=== PATIENT | female | born 1970 | race African-American/Black ===

== ENCOUNTER 2016-09-02 08:31 | Emergency (ER) | payer OTHER ==
--- NOTE | 2016-09-02 09:24 | UC ---
Abdominal Pain Female HPI - HPI Summary HPI Summary: SUDDEN ONSET OF RLQ PAIN 5:30AM THIS MORNING. WAXES AND WANES. HAD A BM AND PAIN GOT WORSE. APPETITE IS DOWN BUT NO N/V. UNABLE TO GET COMFORTABLE. NO FEVER. DENIES URINARY SX. REPORTS H/O PARTIAL HYSTERECTOMY. - History of Current Complaint Chief Complaint: UCAbdominalPain Stated Complaint: LOWER ABD PAIN Time Seen by Provider: 09/02/16 09:17 Hx Obtained From: Patient Onset/Duration: Sudden Onset, Lasting Hours, Still Present Timing: Constant Severity Initially: Moderate Severity Currently: Severe Pain Intensity: 9 Pain Scale Used: 0-10 Numeric Location: Discrete At: RLQ Radiates: No Character: Cramping, Sharp Aggravating Factor(s): Movement Alleviating Factor(s): Nothing Associated Signs and Symptoms: Positive: Decreased Appetite. Negative: Fever, Back Pain, Constipation, Urinary Symptoms, Vaginal Bleeding, Vaginal Discharge, Nausea, Vomiting Allergies/Adverse Reactions: Allergies Allergy/AdvReac Type Severity Reaction Status Date / Time Aspirin Allergy Hives Verified 09/02/16 08:49 Clindamycin Allergy Hives Verified 09/02/16 08:49 Metronidazole [From Flagyl] Allergy Hives Verified 09/02/16 08:49 Nitrofurantoin Allergy Hives Verified 09/02/16 08:51 [From Macrobid] Oxcarbazepine Allergy Hives Verified 09/02/16 08:50 [From Trileptal] Penicillins Allergy Hives Verified 09/02/16 08:48 Trazodone Allergy Hives Verified 09/02/16 08:50 Erythromycin Allergy Hives Uncoded 09/02/16 08:51 Nitro paste Allergy Hives Uncoded 09/02/16 08:50 serazone Allergy Hives Uncoded 09/02/16 08:52 Sulfa drugs Allergy Hives Uncoded 09/02/16 08:50 Home Medications: Home Medications Albuterol 2.5MG/3ML (0.083%)* [Ventolin 2.5 MG/3 ML NEB.JAZMIN*] PRN 09/02/16 [ History] Albuterol HFA INHALER* [Ventolin HFA Inhaler*] 2 puff INH PRN 09/02/16 [History] Atorvastatin* [Lipitor 10 MG*] 1 tab PO WEEKLY 09/02/16 [History Confirmed 09/02] Budesonide/Formote 160/4.5(NF) [Symbicort 160/4.5 (NF)] 09/02/16 [History] Cyclobenzaprine TAB* [Flexeril TAB*] 1 tab PO BEDTIME 09/02/16 [History Confirmed 09/02/16] Gabapentin CAP(*) [Neurontin 300 CAP(*)] 600 mg PO TID 09/02/16 [History Confirmed 09/02/16] Omeprazole 2 cap PO EVERY OTHER DAY 09/02/16 [History Confirmed 09/02/16] Tiotropium [place] Monohydrate [Spiriva Respimat] 1.25 mcg IN 09/02/16 [History] PMH/Surg Hx/FS Hx/Imm Hx - Additional Past Medical History Additional PMH: SARCOIDOSIS Endocrine History Of: Denies: Diabetes, Thyroid Disease Cardiovascular History Of: Denies: Cardiac Disorders, Hypertension Respiratory History Of: Reports: Asthma Denies: COPD GI/ History Of: Reports: Gastroesophageal Reflux Denies: Ulcer Psychological History Of: Reports: Anxiety, Bipolar Disorder - BORDERLINE PERSONALITY - Surgical History Surgical History: Yes Surgery Procedure, Year, and Place: Partial hysterectomy, tubal ligation, colonoscopy - Family History Known Family History: Positive: Hypertension - Social History Alcohol Use: None Substance Use Type: None Smoking Status (MU): Light Every Day Tobacco Smoker Type: Cigarettes Amount Used/How Often: 3-5 per day Have You Smoked in the Last Year: Yes Household Exposure Type: Cigarettes - Immunization History Most Recent Influenza Vaccination: 2015/2016 Most Recent Pneumonia Vaccination: 2016 Review of Systems Constitutional: Negative Respiratory: Negative Cardiovascular: Negative Gastrointestinal: Abdominal Pain, Other - NAUSEA All Other Systems Reviewed And Are Negative: Yes Physical Exam Triage Information Reviewed: Yes Appearance: Well-Nourished, Pain Distress - MODERATE Vital Signs: Initial Vital Signs Temp 97.6 F 09/02/16 08:40 Pulse 97 09/02/16 08:40 Resp 20 09/02/16 08:40 BP 106/68 09/02/16 08:40 Pulse Ox 98 09/02/16 08:40 Vital Signs Reviewed: Yes Eyes: Positive: Conjunctiva Clear ENT: Positive: Hearing grossly normal Neck: Positive: Supple Respiratory Exam: Normal Cardiovascular: Positive: Tachycardia Abdomen Description: Positive: Soft, Other: - TTP RLQ. NO REBOUND, RIGIDITY OR GUARDING. EQUIVOCAL OBTURATOR SIGN. NEG PSOAS SIGN. Negative: CVA Tenderness (R ), CVA Tenderness (L), Distended, Guarding Bowel Sounds: Positive: Present Musculoskeletal: Positive: No Edema Neurological: Positive: Alert Psychological: Positive: Age Appropriate Behavior Skin: Negative: rashes Abd Pain Female Course/Dx - Course Course Of Treatment: PT UNABLE TO PROVIDE A URINE SAMPLE. GIVEN LEVEL OF DISCOMFORT WILL SEND TO ER FOR FURTHER EVALUATION. - Differential Dx/Diagnosis Differential Diagnosis: Appendicitis, Bowel Obstruction, Ectopic , Irritable Bowel Syndrome, Urinary Tract Infection Provider Diagnoses: RLQ PAIN - Physician Notification/Consults Discussed Patient Care With: KATELYN SANDOVAL Time Discussed With Above Provider: 09:30 Instructed by Provider To: Transfer - [place] [facility] [place] [facility] [place] - Discharge Plan Condition: Good Disposition: TRANS HIGHER LVL OF CARE FAC Referrals: No Primary Care Phys,NOPCP [Primary Care Provider] -
[2016-09-02 09:55] VITALS: BP 122/75
== END 2016-09-02 09:50 | disposition short-term general hospital (02) ==
LOC: UCEAST 08:31
DX: R10.31 Right lower quadrant pain (principal); R11.0 Nausea; Z90.711 Acquired absence of uterus with remaining cervical stump; Z88.1 Allergy status to other antibiotic agents; Z88.6 Allergy status to analgesic agent; Z88.0 Allergy status to penicillin; Z88.2 Allergy status to sulfonamides; F17.210 Nicotine dependence, cigarettes, uncomplicated
CPT/HCPCS: 99203; G0463

== ENCOUNTER 2016-09-02 10:12 | Emergency (ER) | payer OTHER, MEDICAID ==
[2016-09-02] MEDS ORDERED: NS 0.9% 1000 ML* 1,000 ML IV ONE (11:28)
[2016-09-02 11:46] LABS: Hematocrit 40 % (35-47); Mean Corpuscular HGB Conc 33 g/dl (31-36); Mean Corpuscular Hemoglobin 29 pg (27-31); Mean Corpuscular Volume 89 fL (80-97); Mean Platelet Volume 10 um3 (7.4-10.4); Red Blood Count 4.48 10^6/ul (4.0-5.4); Red Cell Distribution Width 14 % (10.5-15); White Blood Count 7.3 10^3/ul (3.5-10.8)
[2016-09-02 11:56] LABS: Albumin 3.9 g/dL (3.2-5.2); BUN/Creatinine Ratio 18.6 (8-20); C Reactive Protein 12.56 mg/L (< 5.00); Calcium 9.7 mg/dL (8.6-10.3); EGFR African American 114.9 (>60); EGFR Non-African American 89.3 (>60); Globulin 3.9 g/dL (2-4); Potassium 3.8 mmol/L (3.5-5.0); Total Bilirubin 0.6 mg/dL (0.2-1.0); Total Protein 7.8 g/dL (6.4-8.9)
[2016-09-02 12:45] LABS: Urine Bilirubin Negative (Negative); Urine Glucose Negative (Negative); Urine Nitrite Negative (Negative)
[2016-09-02] MEDS ORDERED: Ondansetron INJ* 2 MG/ML VIAL IV ONE ×2 (12:56→14:22)
--- NOTE | 2016-09-02 13:13 | RAD ---
HISTORY: Right upper quadrant pain COMPARISONS: None TECHNIQUE: Multiple transverse and longitudinal ultrasound images were obtained of the right upper quadrant of the abdomen using grayscale and color Doppler imaging. FINDINGS: LIVER: The liver is normal in shape, size, contour, and echogenicity. There are no focal parenchymal masses. There is normal hepatopedal flow of the portal vein on Doppler imaging. BILIARY TREE: There is no intrahepatic or extrahepatic biliary dilatation. The common duct measures 0.3 cm. GALLBLADDER: The gallbladder is well-visualized. There is no cholelithiasis, gallbladder wall thickening, pericholecystic fluid, or sonographic Mon[place] sign. PANCREAS: The head of the pancreas is unremarkable. The tail of the pancreas is not well visualized secondary to overlying bowel gas. RIGHT KIDNEY: The right kidney is normal in shape, size, contour, and echogenicity. There is no hydronephrosis or nephrolithiasis. The right kidney measures 11.4 x 3.8 x 5.2 cm. AORTA AND IVC: The aorta and IVC are unremarkable. FLUID: There are no pleural effusions. There is no free fluid within the hepatorenal recess. OTHER FINDINGS: None. IMPRESSION: NO ACUTE SONOGRAPHIC PATHOLOGY OF THE VISUALIZED PORTION OF THE ABDOMEN
[2016-09-02] MEDS ORDERED: HYDROmorphone INJ* 1 MG/ML CARPUJECT SYRINGE IV ONE ×2 (14:22→18:30)
[2016-09-02] MEDS ORDERED: Iohexol 300* (CONTRAST) 10 ML SDV IV ONE (15:56)
--- NOTE | 2016-09-02 17:13 | RAD ---
INDICATION: Right lower quadrant pain COMPARISON: Gallbladder sonogram September 02, 2016 TECHNIQUE: Axial source images were obtained from the hemidiaphragms to the symphysis pubis following administration of oral and intravenous contrast. 129 mL Omnipaque 300 was utilized. Coronal and sagittal reconstructed images were acquired. Lung bases: The lung bases are clear. Liver: The liver is normal in size. There are no masses. There is no ductal dilatation. Gallbladder: There are no calcified gallstones. There is no evidence of wall thickening or pericholecystic fluid. Spleen: The spleen is mildly enlarged and diffusely heterogeneous on the immediate and on the delayed images. Although this could be related to the injection timing, a follow-up ultrasound of the spleen is recommended when the patient is clinically well to assess both for splenic size and for the presence of an underlying splenic abnormality. Pancreas: There is no focal pancreatic mass or ductal dilatation. Adrenal glands: There is no evidence of adrenal mass. Kidneys: The kidneys are normal in size and position. There are prompt nephrograms and there is prompt excretion bilaterally. There are no renal parenchymal masses. There is no evidence of nephrolithiasis. Adenopathy: There is no evidence of adenopathy by size criteria. Fluid collections: There are no free or localized fluid collections. Vessels:There are no significant atherosclerotic changes involving the aorta. There is no focal aneurysm. The iliac vessels are normal in caliber. The IVC appears normal. GI tract: There is long segment narrowing and apparent mild mucosal thickening of the terminal ileum raising the possibility of an inflammatory process of the terminal ileum to include Crohn's disease. The remainder the small bowel is unremarkable. The stomach appears normal. The lower GI tract is unremarkable. The appendix is not visualized. Pelvic organs: Hysterectomy. No adnexal mass. Bladder: There are no bladder masses. Abdominal and pelvic soft tissues: The extraperitoneal abdominal and pelvic soft tissues appear normal.. Osseous structures: There are no acute osseous findings. Other: None IMPRESSION: 1. Mildly enlarged spleen with heterogeneous. Suggest follow-up splenic sonography. 2. Lung segment narrowing of the terminal ileum raises the possibility of inflammatory bowel disease. 3. Nonvisualization of the appendix. 4. Hysterectomy.
[2016-09-02] MEDS ORDERED: Ciprofloxacin TAB* 500 MG PO ONE (18:31)
[2016-09-02 18:39] VITALS: BP 125/86
--- NOTE | 2016-09-02 18:50 | ED ---
Hector Bocanegra Anna, scribed for Shiv Henry MD on 09/02/16 at 1619 . Progress - Progress Note Progress Note: DISCUSSED RESULTS WITH PATIENT AND GI, DR PRATT. DISCHARGE HOME STABLE WITH CIPRO AND PERCOCET RX. PATIENT WILL F/U WITH HER GI DOCTOR; RETURN IF WORSE. Re-Evaluation - Re-Evaluation First Eval Re-Evaluation Time: 18:04 Change: Unchanged Comment: Discussed results with patient and family. Will care GI doctor to discuss plan of care. Second Eval Re-Evaluation Time: 18:30 Change: Unchanged Comment: Discussed plan of care with patient. Patient agrees with plan of care. Course/Dx - Course Course Of Treatment: DISCHARGE HOME STABLE. - Diagnoses Provider Diagnoses: Abdominal pain, Ileitis, terminal - Provider Notifications Discussed Care Of Patient With: Dr. Pratt (GI) at 1819. Patient should be started on Abx and can receive pain medication. It is most likely viral. She should follow up with GI. Diagnostics - Vital Signs Vital Signs Temp Pulse Resp BP Pulse Ox 09/02/16 17:00 80 95 09/02/16 16:53 84 146/108 97 09/02/16 16:00 82 128/75 97 09/02/16 15:52 87 135/88 97 09/02/16 15:05 20 09/02/16 15:00 77 115/72 98 09/02/16 14:30 76 112/76 98 09/02/16 14:00 78 116/80 97 09/02/16 13:35 75 97 09/02/16 10:14 98.4 F 93 20 115/76 98 - Laboratory Lab Results: Lab Results 09/02/16 09/02/16 09/02/16 Range/Units 11:00 11:00 11:00 WBC 7.3 (3.5-10.8) 10^3/ul RBC 4.48 (4.0-5.4) 10^6/ul Hgb 13.0 (12.0-16.0) g/dl Hct 40 (35-47) % MCV 89 (80-97) fL MCH 29 (27-31) pg MCHC 33 (31-36) g/dl RDW 14 (10.5-15) % Plt Count 248 (150-450) 10^3/ul MPV 10 (7.4-10.4) um3 Neut % (Auto) 62.4 (38-83) % Lymph % (Auto) 27.4 (25-47) % [place] % (Auto) 6.6 (1-9) % Eos % (Auto) 2.8 (0-6) % Baso % (Auto) 0.8 (0-2) % Absolute Neuts (auto) 4.6 (1.5-7.7) 10^3/ul Absolute Lymphs (auto) 2.0 (1.0-4.8) 10^3/ul Absolute Monos (auto) 0.5 (0-0.8) 10^3/ul Absolute Eos (auto) 0.2 (0-0.6) 10^3/ul Absolute Basos (auto) 0.1 (0-0.2) 10^3/ul Absolute Nucleated RBC 0.01 10^3/ul Nucleated RBC % 0.1 Sodium 136 (133-145) mmol/L Potassium 3.8 (3.5-5.0) mmol/L Chloride 104 (101-111) mmol/L Carbon Dioxide 27 (22-32) mmol/L Anion Gap 5 (2-11) mmol/L BUN 13 (6-24) mg/dL Creatinine 0.70 (0.51-0.95) mg/dL Est GFR ( Amer) 114.9 (>60) Est GFR (Non-Af Amer) 89.3 (>60) BUN/Creatinine Ratio 18.6 (8-20) Glucose 97 (70-100) mg/dL Lactic Acid 1.1 (0.5-2.0) mmol/L Calcium 9.7 (8.6-10.3) mg/dL Total Bilirubin 0.60 (0.2-1.0) mg/dL AST 28 (13-39) U/L ALT 42 (7-52) U/L Alkaline Phosphatase 145 H (34-104) U/L C-Reactive Protein 12.56 H (< 5.00) mg/L Total Protein 7.8 (6.4-8.9) g/dL Albumin 3.9 (3.2-5.2) g/dL Globulin 3.9 (2-4) g/dL Albumin/Globulin Ratio 1.0 (1-3) Lipase 17 (11.0-82.0) U/L Urine Color Urine Appearance Urine pH (5-9) Ur Specific [place] (1.010-1.030) Urine Protein (Negative) Urine Ketones (Negative) Urine Blood (Negative) Urine Nitrate (Negative) Urine Bilirubin (Negative) Urine Urobilinogen (Negative) Ur Leukocyte Esterase (Negative) Urine Glucose (Negative) 09/02/16 Range/Units 12:20 WBC (3.5-10.8) 10^3/ul RBC (4.0-5.4) 10^6/ul Hgb (12.0-16.0) g/dl Hct (35-47) % MCV (80-97) fL MCH (27-31) pg MCHC (31-36) g/dl RDW (10.5-15) % Plt Count (150-450) 10^3/ul MPV (7.4-10.4) um3 Neut % (Auto) (38-83) % Lymph % (Auto) (25-47) % [place] % (Auto) (1-9) % Eos % (Auto) (0-6) % Baso % (Auto) (0-2) % Absolute Neuts (auto) (1.5-7.7) 10^3/ul Absolute Lymphs (auto) (1.0-4.8) 10^3/ul Absolute Monos (auto) (0-0.8) 10^3/ul Absolute Eos (auto) (0-0.6) 10^3/ul Absolute Basos (auto) (0-0.2) 10^3/ul Absolute Nucleated RBC 10^3/ul Nucleated RBC % Sodium (133-145) mmol/L Potassium (3.5-5.0) mmol/L Chloride (101-111) mmol/L Carbon Dioxide (22-32) mmol/L Anion Gap (2-11) mmol/L BUN (6-24) mg/dL Creatinine (0.51-0.95) mg/dL Est GFR ( Amer) (>60) Est GFR (Non-Af Amer) (>60) BUN/Creatinine Ratio (8-20) Glucose (70-100) mg/dL Lactic Acid (0.5-2.0) mmol/L Calcium (8.6-10.3) mg/dL Total Bilirubin (0.2-1.0) mg/dL AST (13-39) U/L ALT (7-52) U/L Alkaline Phosphatase (34-104) U/L C-Reactive Protein (< 5.00) mg/L Total Protein (6.4-8.9) g/dL Albumin (3.2-5.2) g/dL Globulin (2-4) g/dL Albumin/Globulin Ratio (1-3) Lipase (11.0-82.0) U/L Urine Color Yellow Urine Appearance Cloudy Urine pH 5.0 (5-9) Ur Specific [place] 1.018 (1.010-1.030) Urine Protein Negative (Negative) Urine Ketones Negative (Negative) Urine Blood Negative (Negative) Urine Nitrate Negative (Negative) Urine Bilirubin Negative (Negative) Urine Urobilinogen Negative (Negative) Ur Leukocyte Esterase Negative (Negative) Urine Glucose Negative (Negative) Result Diagrams: 09/02/16 11:00 09/02/16 11:00 Lab Statement: Any lab studies that have been ordered have been reviewed, and results considered in the medical decision making process. - CT CT abd/pel CT Interpretation: Positive (See Comments) CT Interpretation Completed By: Radiologist - IMPRESSION: 1. Mildly enlarged spleen with heterogeneous. Suggest follow-up splenic sonography. 2. Lung segment narrowing of the terminal ileum raises the possibility of inflammatory bowel disease. 3. Nonvisualization of the appendix. 4. Hysterectomy. - Additional Comments Diagnostic Additional Comments: GallBladder US -- NO ACUTE SONOGRAPHIC PATHOLOGY OF THE VISUALIZED PORTION OF THE ABDOMEN The documentation as recorded by the Hector kendrick Anna accurately reflects the service I personally performed and the decisions made by me, Shiv Henry MD.
--- NOTE | 2016-09-03 13:05 | ED ---
I, Oh,Somiriam, scribed for aJcobo Owens MD on 09/02/16 at 1148 . Abdominal Pain/Female - HPI Summary HPI Summary: THis 46 y/o female presnets to ED from Urgent Care via private transport for acute, intermittent RLQ abd pain since 0500 AM. Abd pain is cramping/sharp and intermittent. Pt woke up with the pain at 0500 AM, but dismissed it, rolled over , and fell back asleep. She woke up later in the morning and had dizziness while ambulating to bathroom. Pt had normal BM, and had another episode of pain she described as similar to "labor pain". She is currently pain free at time of initial evaluation. Pt reports recent constipation last week that is currently resolved. No oral intake last night due to lack of appetite. She drank distilled water and electrolytes to keep herself hydrated and constipation- free. She went to Urgent Care and subsequently referred to ED for further workup. PMHx includes GERD. Pt is s/p hysterectomy. - History of Current Complaint Chief Complaint: EDAbdPain Stated Complaint: LOWER ABD PAIN COMMING FROM [facility] Time Seen by Provider: 09/02/16 10:39 Hx Obtained From: Patient, Medical Records Onset/Duration: Lasting Minutes, Resolved Timing: Intermittent Episode Lasting Pain Intensity: 9 Pain Scale Used: 0-10 Numeric Location: Discrete At: RLQ Radiates: No Aggravating Factor(s): Nothing Alleviating Factor(s): Spontaneous Resolution Associated Signs and Symptoms: Positive: Dizzy Allergies/Adverse Reactions: Allergies Allergy/AdvReac Type Severity Reaction Status Date / Time Aspirin Allergy Hives Verified 09/02/16 08:49 Clindamycin Allergy Hives Verified 09/02/16 08:49 Doxycycline Allergy Nausea And Verified 09/02/16 10:14 Vomiting Metronidazole [From Flagyl] Allergy Hives Verified 09/02/16 08:49 Nitrofurantoin Allergy Hives Verified 09/02/16 08:51 [From Macrobid] Oxcarbazepine Allergy Hives Verified 09/02/16 08:50 [From Trileptal] Penicillins Allergy Hives Verified 09/02/16 08:48 Trazodone Allergy Hives Verified 09/02/16 08:50 Erythromycin Allergy Hives Uncoded 09/02/16 08:51 Nitro paste Allergy Hives Uncoded 09/02/16 08:50 serazone Allergy Hives Uncoded 09/02/16 08:52 Sulfa drugs Allergy Hives Uncoded 09/02/16 08:50 PMH/Surg Hx/FS Hx/Imm Hx Endocrine/Hematology History: Denies: Hx Diabetes, Hx Thyroid Disease Cardiovascular History: Denies: Hx Hypertension Respiratory History: Reports: Hx Asthma Denies: Hx Chronic Obstructive Pulmonary Disease (COPD) GI History: Denies: Hx Ulcer Psychiatric History: Reports: Hx Anxiety, Hx Bipolar Disorder - BORDERLINE PERSONALITY - Surgical History Surgery Procedure, Year, and Place: Partial hysterectomy, tubal ligation, colonoscopy Infectious Disease History: No Infectious Disease History: Denies: Hx Hepatitis, Hx Human Immunodeficiency Virus (HIV), History Other Infectious Disease, Traveled Outside the [place] in Last 30 Days - Family History Known Family History: Positive: Hypertension - Social History Alcohol Use: None Hx Substance Use: No Substance Use Type: Reports: None Hx Tobacco Use: Yes Smoking Status (MU): Light Every Day Tobacco Smoker Type: Cigarettes Amount Used/How Often: 3-5 per day Have You Smoked in the Last Year: Yes Review of Systems Negative: Fever Positive: Abdominal Pain - RLQ pain. Negative: Vomiting, Nausea Neurological: Other - positive for dizziness Negative: Anxious All Other Systems Reviewed And Are Negative: Yes Physical Exam Triage Information Reviewed: Yes Vital Signs On Initial Exam: Initial Vitals Temp Pulse Resp BP Pulse Ox 98.4 F 93 20 115/76 98 09/02/16 10:14 09/02/16 10:14 09/02/16 10:14 09/02/16 10:14 09/02/16 10:14 Vital Signs Reviewed: Yes Appearance: Positive: Obese Head/Face: Positive: Normal Head/Face Inspection Eyes: Positive: Normal Neck: Positive: Supple, Nontender Respiratory/Lung Sounds: Positive: Breath Sounds Present Abdomen Description: Positive: Nontender, Soft. Negative: Other: - leg raise Musculoskeletal: Positive: Normal Neurological: Positive: Normal Psychiatric: Positive: Normal, Affect/Mood Appropriate AVPU Assessment: Alert - [place] Coma Scale Coma Scale Total: 15 Diagnostics - Vital Signs Vital Signs Temp Pulse Resp BP Pulse Ox 09/02/16 10:14 98.4 F 93 20 115/76 98 - Laboratory Lab Results: Lab Results 02/14/17 02/14/17 02/14/17 Range/Units 11:00 11:00 11:00 WBC 7.3 (3.5-10.8) 10^3/ul RBC 4.48 (4.0-5.4) 10^6/ul Hgb 13.0 (12.0-16.0) g/dl Hct 40 (35-47) % MCV 89 (80-97) fL MCH 29 (27-31) pg MCHC 33 (31-36) g/dl RDW 14 (10.5-15) % Plt Count 248 (150-450) 10^3/ul MPV 10 (7.4-10.4) um3 Neut % (Auto) 62.4 (38-83) % Lymph % (Auto) 27.4 (25-47) % [place] % (Auto) 6.6 (1-9) % Eos % (Auto) 2.8 (0-6) % Baso % (Auto) 0.8 (0-2) % Absolute Neuts (auto) 4.6 (1.5-7.7) 10^3/ul Absolute Lymphs (auto) 2.0 (1.0-4.8) 10^3/ul Absolute Monos (auto) 0.5 (0-0.8) 10^3/ul Absolute Eos (auto) 0.2 (0-0.6) 10^3/ul Absolute Basos (auto) 0.1 (0-0.2) 10^3/ul Absolute Nucleated RBC 0.01 10^3/ul Nucleated RBC % 0.1 Sodium 136 (133-145) mmol/L Potassium 3.8 (3.5-5.0) mmol/L Chloride 104 (101-111) mmol/L Carbon Dioxide 27 (22-32) mmol/L Anion Gap 5 (2-11) mmol/L BUN 13 (6-24) mg/dL Creatinine 0.70 (0.51-0.95) mg/dL Est GFR ( Amer) 114.9 (>60) Est GFR (Non-Af Amer) 89.3 (>60) BUN/Creatinine Ratio 18.6 (8-20) Glucose 97 (70-100) mg/dL Lactic Acid 1.1 (0.5-2.0) mmol/L Calcium 9.7 (8.6-10.3) mg/dL Total Bilirubin 0.60 (0.2-1.0) mg/dL AST 28 (13-39) U/L ALT 42 (7-52) U/L Alkaline Phosphatase 145 H (34-104) U/L C-Reactive Protein 12.56 H (< 5.00) mg/L Total Protein 7.8 (6.4-8.9) g/dL Albumin 3.9 (3.2-5.2) g/dL Globulin 3.9 (2-4) g/dL Albumin/Globulin Ratio 1.0 (1-3) Lipase 17 (11.0-82.0) U/L Urine Color Urine Appearance Urine pH (5-9) Ur Specific [place] (1.010-1.030) Urine Protein (Negative) Urine Ketones (Negative) Urine Blood (Negative) Urine Nitrate (Negative) Urine Bilirubin (Negative) Urine Urobilinogen (Negative) Ur Leukocyte Esterase (Negative) Urine Glucose (Negative) 09/02/16 Range/Units 12:20 WBC (3.5-10.8) 10^3/ul RBC (4.0-5.4) 10^6/ul Hgb (12.0-16.0) g/dl Hct (35-47) % MCV (80-97) fL MCH (27-31) pg MCHC (31-36) g/dl RDW (10.5-15) % Plt Count (150-450) 10^3/ul MPV (7.4-10.4) um3 Neut % (Auto) (38-83) % Lymph % (Auto) (25-47) % [place] % (Auto) (1-9) % Eos % (Auto) (0-6) % Baso % (Auto) (0-2) % Absolute Neuts (auto) (1.5-7.7) 10^3/ul Absolute Lymphs (auto) (1.0-4.8) 10^3/ul Absolute Monos (auto) (0-0.8) 10^3/ul Absolute Eos (auto) (0-0.6) 10^3/ul Absolute Basos (auto) (0-0.2) 10^3/ul Absolute Nucleated RBC 10^3/ul Nucleated RBC % Sodium (133-145) mmol/L Potassium (3.5-5.0) mmol/L Chloride (101-111) mmol/L Carbon Dioxide (22-32) mmol/L Anion Gap (2-11) mmol/L BUN (6-24) mg/dL Creatinine (0.51-0.95) mg/dL Est GFR ( Amer) (>60) Est GFR (Non-Af Amer) (>60) BUN/Creatinine Ratio (8-20) Glucose (70-100) mg/dL Lactic Acid (0.5-2.0) mmol/L Calcium (8.6-10.3) mg/dL Total Bilirubin (0.2-1.0) mg/dL AST (13-39) U/L ALT (7-52) U/L Alkaline Phosphatase (34-104) U/L C-Reactive Protein (< 5.00) mg/L Total Protein (6.4-8.9) g/dL Albumin (3.2-5.2) g/dL Globulin (2-4) g/dL Albumin/Globulin Ratio (1-3) Lipase (11.0-82.0) U/L Urine Color Yellow Urine Appearance Cloudy Urine pH 5.0 (5-9) Ur Specific [place] 1.018 (1.010-1.030) Urine Protein Negative (Negative) Urine Ketones Negative (Negative) Urine Blood Negative (Negative) Urine Nitrate Negative (Negative) Urine Bilirubin Negative (Negative) Urine Urobilinogen Negative (Negative) Ur Leukocyte Esterase Negative (Negative) Urine Glucose Negative (Negative) Result Diagrams: 09/02/16 11:00 09/02/16 11:00 Lab Statement: Any lab studies that have been ordered have been reviewed, and results considered in the medical decision making process. - CT Ab/P CT Interpretation Completed By: Radiologist - See EMR CT abd/pel CT Interpretation: Positive (See Comments) CT Interpretation Completed By: Radiologist - IMPRESSION: 1. Mildly enlarged spleen with heterogeneous. Suggest follow-up splenic sonography. 2. Lung segment narrowing of the terminal ileum raises the possibility of inflammatory bowel disease. 3. Nonvisualization of the appendix. 4. Hysterectomy. - Additional Comments Diagnostic Additional Comments: GallBladder US -- NO ACUTE SONOGRAPHIC PATHOLOGY OF THE VISUALIZED PORTION OF THE ABDOMEN Re-Evaluation - Re-Evaluation First Eval Re-Evaluation Time: 14:14 Change: Improved Comment: in room to update pt on US imaging results and plan of care involving discharge. Pt is agreeable. Pt is requesting CT and further imaging studies. Second Eval Re-Evaluation Time: 15:41 Change: Unchanged Comment: Notified family member about plan of care involving CT imaging study via phone. Abdominal Pain Fem Course/Dx - Course Course Of Treatment: Ms. Lane presented to the ED with a right-sided abdominal pain the was hard to characterize and to reproduce. Her labs were normal as was a GB U/S but her pain would become severe at times consistent with a peristaltic-type pattern. A CT scan was ordered. - Diagnoses Provider Diagnoses: Abdominal pain, Ileitis, terminal - Provider Notifications Discussed Care Of Patient With: Dr. Henry Time Discussed With Above Provider: 16:00 - Change of shift Discharge - Discharge Plan Condition: Stable Disposition: HOME Prescriptions: Ciprofloxacin TAB* [Cipro Tab*] 500 mg PO BID #14 tab oxyCODONE/Acetamin 5/325 MG* [Percocet 5/325 TAB*] 1 tab PO Q6H PRN #10 tab MDD 4 PRN Reason: Pain Patient Education Materials: Acute Abdominal Pain (ED) Referrals: [facility] [Outside] - 2 Days Additional Instructions: FOLLOW UP WITH YOUR TELECOM NETWORK MANAGER AND REGULAR DOCTOR FOR YOUR ABDOMINAL PAIN AND INFLAMMATION IN YOUR TERMINAL ILLIUM. RETURN TO THE EMERGENCY DEPARTMENT FOR ANY WORSENING OF YOUR CONDITION; PAIN, FEVER, YOU FEEL ILL OR QUESTIONS OR CONCERNS. The documentation as recorded by the Mustapha kendrick Soohyun accurately reflects the service I personally performed and the decisions made by me, Jacobo Owens MD.
== END 2016-09-02 19:36 | disposition home or self-care (01) ==
LOC: ED 10:12
DX: K52.9 Noninfective gastroenteritis and colitis, unspecified (principal); R10.9 Unspecified abdominal pain; R16.1 Splenomegaly, not elsewhere classified; Z90.710 Acquired absence of both cervix and uterus
CPT/HCPCS: 36415; 74177; 76705; 80053; 81003; 83605; 83690; 85025; 86140; 96374; 96375; 99283; A9270-GY; J1170; J2405; Q9967